=== PATIENT | male | born 1955 | race Caucasian/White ===

== ENCOUNTER 2018-05-13 06:12 | Day surgery (SDC) | payer OTHER ==
[2018-05-06 09:45] VITALS: BMI 32.1
--- NOTE | 2018-05-13 05:46 | HP ---
Copied To: Juanis Donahue MD Attending MD: Juanis Donahue MD REASON FOR ADMISSION: Peripheral angiogram, possible angioplasty. BRIEF CLINICAL HISTORY: This is a 62-year-old male with a past medical history significant for coronary artery disease, status post CABG on 12/01/2016, four vessels bypass, WRIGHT to LAD, SVG to circumflex and Y graft SVG to RPDA and RV marginal branch, status post stenting of right internal carotid artery before CABG, complained of severe claudication, underwent REYNA and PVR that shows significantly decreased REYNA and PVR on right and left, more so on the left than right. So, the patient admitted for symptomatic claudication, CLI, and abnormal REYNA. PAST MEDICAL HISTORY: Significant for hypertension, hyperlipidemia, coronary artery disease, peripheral arterial disease, status post four vessels bypass, WRIGHT to LAD, SVG to circumflex and SVG sequential to RPDA and RV branch on 12/01/2016. The patient has also carotid artery stenting of right ICA prior to CABG. SOCIAL HISTORY: Denies any smoking. Denies any history of alcohol abuse. CURRENT MEDICATIONS: The patient is taking metoprolol succinate 25 mg daily, atorvastatin 40 mg daily, enalapril 20 mg daily, Plavix 75 mg daily, Ecotrin 81 mg daily, levothyroxine 50 mcg daily, spironolactone 50 mg daily, Centrum 1 tablet daily, Spiriva 2.5 mg daily. ALLERGIES: NO KNOWN DRUG ALLERGY. RECENT CARDIAC WORKUP: As follows: The patient's REYNA and PVR that shows occlusion of the femoral artery, left SFA. REYNA on the right is 0.81, REYNA on the left is 0.87. REYNA reported as occlusion of the femoral artery on the right and left lower extremity. Right, no detectable flow noted in the femoral artery, plaque noted in the common femoral artery. No detectable flow noted in the left femoral artery. Conclusion of studies suggestive of moderate peripheral arterial occlusive disease on the right and left severe disease. Read by Dr. Laura Torres at [facility]. Right side suggestive of moderate peripheral arterial occlusive disease of the right and the PVR on the left suggested [id number] peripheral arterial disease on the left. PHYSICAL EXAMINATION: As follows; GENERAL: Height of the patient is 5 feet 2 inches, weight of the patient is 176 pounds, body mass index 32 kg/m2. VITAL SIGNS: Temperature afebrile, heart rate 60, blood pressure 100/80. HEENT: PERRLA. Extraocular muscles intact. NECK: Supple. No carotid bruits or thyromegaly. CHEST: Clear to auscultation. HEART: S1 and S2, regular. ABDOMEN: Soft. EXTREMITIES: Clubbing and cyanosis negative. Distal pulses, Doppler, left and right. Palpable femoral, palpable popliteal pulse, but both Doppler. IMPRESSION: A 62-year-old male with a past medical history significant for coronary artery disease, status post coronary artery bypass graft on 12/01/2016, four vessels, left internal mammary artery to left anterior descending, saphenous vein graft to circumflex, sequential saphenous vein graft to right posterior descending artery and right ventricle branches; history of carotid artery stenting prior to coronary artery bypass graft in 10/2016; history of peripheral arterial disease, severe bilateral occlusive disease - peripheral, with history of claudication; hypertension; hyperlipidemia. RECOMMENDATIONS: Peripheral angiogram. Further recommend after the peripheral angiogram. Thank you Dr. Scott for providing us the opportunity in taking care of the patient, Damien Villafuerte. Juanis Donahue MD cc: Sonia Monique MD
[2018-05-13] MEDS ORDERED: Lidocaine PF 2% (5 ml) Inj (For Cardiac Arrhy) ONE (06:32)
[2018-05-13] MEDS ORDERED: Phenylephrine 10 mg/ml Inj ONE (06:32)
[2018-05-13] MEDS ORDERED: Iodixanol 320 MG/ML 100 ML BOTTLE IV ONE (06:33)
[2018-05-13] MEDS ORDERED: Iodixanol 320 mg/ml 150 ml Bottle IV ONE (06:33)
[2018-05-13] MEDS ORDERED: Nitroglycerin 50mg in D5W 50 MG/250 ML BOTTLE IV ONE (06:33)
[2018-05-13] MEDS ORDERED: Iodixanol 320 MG/ML 200 ML BOTTLE IV ONE (06:33)
[2018-05-13 07:06] LABS: INR 0.96
[2018-05-13 07:09] LABS: PARTIAL THROMBOPLASTIN TIME 29.7 Seconds (25.1-36.5)
[2018-05-13 07:23] LABS: BASO # 0.04 K/mm3 (0.0-2.0); BASO % 0.5 % (0.0-3.0); EOS # 0.1 (0.0-0.7); EOS % 1.8 % (1.5-5.0); GRAN # 3.62 (1.4-6.5); GRAN % 46.6 % (50.0-68.0); HEMOGLOBIN 13.8 g/dL (14.0-18.0); LYMPH # 3.4 (1.2-3.4); LYMPH % 43.2 % (22.0-35.0); MEAN CELL VOLUME 89.2 fl (80.0-105.0); MEAN CORPUSCULAR HEMOGLOBIN 30.5 pg (25.0-35.0); MEAN CORPUSCULAR HGB CONC 34.2 g/dl (31.0-37.0); MEAN PLATELET VOLUME 9.1 fl (7.0-11.0); MONO # 0.6 (0.1-0.6); MONO % 7.9 % (1.0-6.0); RBC 4.52 10^6/uL (3.5-6.1); RED CELL DISTRIBUTION WIDTH 13.5 % (11.5-14.5); WHITE BLOOD COUNT 7.8 10^3/ul (4.5-11.0)
[2018-05-13] MEDS ORDERED: Verapamil 2 ML ONE (07:30)
[2018-05-13 07:38] LABS: ALB/GLOB RATIO 1.3 (1.1-1.8); ALBUMIN 4.2 g/dL (3.0-4.8); ALT/SGPT 37 U/L (7-56); AST/SGOT 27 U/L (17-59); BLOOD UREA NITROGEN 22 mg/dL (7-21); CALCIUM 9.4 mg/dL (8.4-10.5); GFR AFRICAN-AMERICAN > 60; GFR NON-AFRICAN AMERICAN 56
[2018-05-13] MEDS ORDERED: Midazolam 2 MG/2 ML VIAL ONE (07:45)
[2018-05-13] MEDS ORDERED: Sodium Chloride 0.9% 1,000 ML IV SCH (09:15)
[2018-05-13 11:27] VITALS: TEMP 98
[2018-05-13 12:19] VITALS: O2SAT 98
[2018-05-13 14:39] VITALS: BP 141/74; PULSE 61; RESP 18
--- NOTE | 2018-05-13 17:24 | CPOSTOP ---
Copied To: Juanis Donahue MD Attending MD: Juanis Donahue MD DATE: 05/13/2018 CARDIOVASCULAR LAB POST PROCEDURE NOTE DICTATING PHYSICIAN: Juanis Donahue MD JEWEL GAUGER: Sussy Bajwa, body and frame technician. TYPE OF ANESTHESIA: Conscious sedation, moderate. Total 2 mg of Versed, 50 of fentanyl given. PRE-PROCEDURE DIAGNOSES: Severe peripheral arterial disease, claudication, critical limb ischemia. PROCEDURE PERFORMED: Abdominal aortogram, peripheral angiogram with runoff using deep femoral artery. FINAL DIAGNOSIS: Bilateral severe peripheral arterial disease. POST PROCEDURE CONDITION: Post procedure, the patient's condition is stable. VASCULAR ACCESS: Left femoral artery. CLOSURE DEVICE: Mynx. TOTAL RADIATION DOSE: 8827.35 milligray unit. FLUORO TIME: 2.9 minutes. Juanis Donahue MD
--- NOTE | 2018-05-14 04:13 | VAS ---
Copied To: Juanis Donahue MD Attending MD: Juanis Donahue MD DATE: 05/13/2018 TYPE OF DICTATION: Peripheral angiogram, abdominal aortogram with runoff. PROCEDURES PERFORMED: 1. Distal abdominal aortogram. 2. Bilateral lower extremity peripheral angiogram with 3-vessels runoff using digital subtraction angiography. REFERRING PHYSICIAN: Chapis Del Valle MD B OPERATOR: Donn Donahue MD FILLER LEAF CUTTER LONG: Darin Bajwa, compressor technician is scheduling elective. INDICATIONS FOR THE PROCEDURE: Critical ischemia of the limb, severe claudication more on the right than left, grossly abnormal REYNA suggestive of critical disease bilateral SFA as well as anterior tibial disease. BRIEF CLINICAL HISTORY: This is a 62-year-old male with past medical history significant for coronary artery disease, status post CABG on 12/01/2016, four-vessel, WRIGHT to LAD, SVG to circumflex and Y graft to RPDA and RV branches, status post stenting of right ICA before CABG, history of ex-smoker, hypertension, hyperlipidemia, hypothyroidism who was having severe pain on walking a block in both right and left, right leg more than left. The patient underwent REYNA that showed 0.81 on the right and 0.87 on the left and no pulsation noted on REYNA, PVR on both SFA. Reported severe bilateral SFA disease. Peripheral angiogram recommended. PERIPHERAL ANGIOGRAM AND TECHNIQUE: Relative risk and indications of the procedure were explained to the patient. Patient agreed and consent obtained. Patient was put in supine position on the arteriogram table, and both right and left groins were prepped and then left groin was punctured with micropuncture needle for femoral access. Conscious sedation was given continuously. The patient was continuously being monitored. Pulse oxymetry and hemodynamics continuously being monitored. Access as mentioned obtained from the left femoral artery with micropuncture technique using Seldinger technique and then 6-Cymraes arterial sheath was introduced and then 5-Cymraes Omni Flush catheter was placed in the distal abdominal aortogram above the renal artery and non-selective abdominal aortogram with non selective bilateral renal angiogram was done and then the catheter Omni Flush was pulled at the bifurcation and digital subtraction angiography with peripheral runoff done in AP position up to the foot and then oblique and both left and right anterior oblique view was done at the bifurcation of SFA and profunda artery. FINDINGS: As follows: Diffuse calcification noted in the abdominal aorta with acute hostile takeoff with bifurcation of both common iliac noted. Severe calcification noted with multi plaque noted in the bifurcation of the aorta, which bifurcates into both left and right common iliac artery. Left common iliac plaque noted and diffuse plaque noted, 30% to 40% stenosis noted, which bifurcates into external iliac and internal iliac. External iliac continued with common femoral artery, which split into left superficial femoral artery and left profunda femoral artery. After the left femoral artery takes off, 1 cm totally occluded and reconstitute in adductor canal. Long segment is missing from origin of the left SFA up to the adductor canal and then it continues as a femoropopliteal trunk and then it trifurcates into anterior tibial, posterior tibial and common peroneal and distal two vessels runoff noted with peroneal and posterior tibial. Right common iliac shows luminal irregularities and plaque noted with no flow obstructive stenosis noted, may be 20% to 30% stenosis, but non flow obstructive, which bifurcates into external iliac and internal iliac. External iliac continues as common femoral, which split into right SFA and right profunda. Right SFA is a flush occlusion as is breaks off and no origin noted. No knob noted and that it reconstitute at the adductor canal above the knee and continues as a femoropopliteal trunk, which again trifurcates into anterior tibial, posterior tibial, and common peroneal and two-vessel distal runoff noted up to the ankle. IMPRESSION: Severe bilateral superficial femoral artery disease as well as anterior tibial vessel disease. RECOMMENDATIONS: Discussed of the patient's option, fem-pop bypass and crossover on the left side versus catheter-based treatment using reentry device at [facility] Interim, continue the current medication, hydrate the patient for 6-8 hours, total 180 mL of contrast to use and follow up in one week. At that time, further recommendation we will discuss with the patient. Thank you, Dr. Del Valle, for providing us the opportunity in taking care of the patient, Damien Villafuerte. Juanis Donahue MD cc: Chapis Del Valle MD
== END 2018-05-13 15:20 | disposition home or self-care (01) ==
LOC: SDSVAS 06:12
PROVIDERS: ATTEND Internal Medicine Cardiovascular Disease
DX: I73.9 Peripheral vascular disease, unspecified (principal); I10 Essential (primary) hypertension; E03.9 Hypothyroidism, unspecified; E78.5 Hyperlipidemia, unspecified; I25.10 Atherosclerotic heart disease of native coronary artery without angina pectoris; Z87.891 Personal history of nicotine dependence; Z95.1 Presence of aortocoronary bypass graft; Z95.5 Presence of coronary angioplasty implant and graft; Z79.82 Long term (current) use of aspirin
CPT/HCPCS: 36200; 36415; 75625; 75716; 80053; 85025; 85610; 85730; 86850; 86900; 99152; 99153; C1760; C1769; C1887; C2629; J1644; J2250; J3010; J7030; Q9966; Q9967 ×2